=== PATIENT | male | born 1975 | race Caucasian/White ===

== ENCOUNTER 2022-11-09 01:19 | Emergency (ER) | payer MEDICAID ==
[~2022-11-09] VITALS: Ht 170.2 cm; Wt 87.5 kg
[2022-11-09 01:24] VITALS: BP 129/83
--- NOTE | 2022-11-09 01:26 | NUR ---
pt to lobby
--- NOTE | 2022-11-09 02:39 | NUR ---
PT TO BED #11 WITH GIRLFRIEND AT BEDSIDE
--- NOTE | 2022-11-09 02:51 | NUR ---
Patient resting in bed, A/Ox4, chest rise and fall symmetrical, no s/s of distress.
[2022-11-09] MEDS ORDERED: ACET-10509 PO (03:23)
[2022-11-09] MEDS ORDERED: SULF-59 PO (03:23)
[2022-11-09] MEDS ORDERED: IBUPROFEN 600 MG TAB PO ONE (03:25)
--- NOTE | 2022-11-09 03:25 | NUR ---
Patient resting in bed, A/Ox4, chest rise and fall symmetrical, no s/s of distress.
[2022-11-09 03:34] VITALS: BP 106/75
== END 2022-11-09 03:35 | disposition home or self-care (01) ==
LOC: MED 01:19
DX: I88.9 Nonspecific lymphadenitis, unspecified (principal)
CPT/HCPCS: 99283